=== PATIENT | male | born 1995 | race Caucasian/White ===

== ENCOUNTER 2023-03-12 21:15 | Emergency (ER) | payer SELFPAY ==
[~2023-03-12] VITALS: Ht 167.6 cm; Wt 80.0 kg
[2023-03-12 21:32] VITALS: O2SAT 98
[2023-03-12] MEDS ORDERED: IBUPROFEN 600MG TABLET PO ONE (23:00)
[2023-03-12] MEDS ORDERED: IBUP-2029 MT (23:12)
[2023-03-12] MEDS ORDERED: HYDR-4001 MT (23:12)
[2023-03-12 23:18] VITALS: BP 135/96
[2023-03-12 23:32] VITALS: PULSE 82; RESP 17; TEMP 98.2
== END 2023-03-12 23:30 | disposition home or self-care (01) ==
LOC: ER 21:15
DX: S62.603A Fracture of unspecified phalanx of left middle finger, initial encounter for closed fracture (principal); W18.39XA Other fall on same level, initial encounter; Y93.89 Activity, other specified; Y92.89 Other specified places as the place of occurrence of the external cause; Y99.8 Other external cause status
CPT/HCPCS: 73130; 99283